=== PATIENT | female | born 1960 | race African-American/Black ===

== ENCOUNTER 2024-04-08 13:00 | Emergency (ER) | payer MEDICAID, OTHER ==
[~2024-04-08] VITALS: Ht 160 cm; Wt 103.0 kg
[2024-04-08 13:09] VITALS: O2SAT 99
[2024-04-08 13:14] VITALS: BP 119/95; PULSE 100; RESP 16; TEMP 36.78072; O2SAT 99
[2024-04-08] MEDS ORDERED: ACETAMINOPHEN 325MG TABLET PO ONE (14:15)
[2024-04-08 14:53] LABS: HEMATOCRIT 48.4 % (36.0-48.0); HEMOGLOBIN 16.2 g/dL (12.0-16.0); MEAN CORPUSCULAR HEMOGLOBIN 30.8 pg (28.0-32.0); MEAN CORPUSCULAR HGB CONC 33.4 g/dL (31.0-37.0); MEAN CORPUSCULAR VOLUME 92.2 fL (81.0-99.0); PLATELET 224 x1000/uL (130-400); RED BLOOD CELL COUNT 5.25 mill/uL (4.2-5.4); RED CELL DISTRIBUTION WIDTH 13.9 % (11.6-14.6); WHITE BLOOD COUNT 9.5 x1000/uL (4.5-11.0)
[2024-04-08 14:57] LABS: CHLORIDE 106 mEq/L (98-107); POTASSIUM 3.9 mEq/L (3.5-5.1); SODIUM 139 mEq/L (136-145)
[2024-04-08 14:58] LABS: CALCIUM 9.7 mg/dL (8.7-10.4); CARBON DIOXIDE 27 mEq/L (21-32)
[2024-04-08 15:03] LABS: CREATININE 0.7 mg/dL (0.6-1.0); GLUCOSE 107 mg/dL (70-105)
[2024-04-08 15:18] LABS: TROPONIN I HIGH SENSITIVITY < 4 ng/L (3.0-34); UREA NITROGEN BLOOD < 5 mg/dL (9-23)
[2024-04-08] MEDS ORDERED: IBUP-2029 MT (15:48)
[2024-04-08] MEDS: HYDROCODONE/ACETAMINOPHEN 5/325MG TABLET PO ONE (16:10)
[2024-04-09] MEDS ORDERED: ACETAMINOPHEN 325MG TABLET PO NR (02:30)
== END 2024-04-08 16:14 | disposition home or self-care (01) ==
LOC: ER 13:00
DX: M25.561 Pain in right knee (principal); M25.562 Pain in left knee; E11.9 Type 2 diabetes mellitus without complications; I10 Essential (primary) hypertension; R42 Dizziness and giddiness
CPT/HCPCS: 29505; 36415; 73562; 80048; 84484; 85027; 93005; 99285